=== PATIENT | female | born 1935 | race Caucasian/White ===

== ENCOUNTER 2018-05-07 11:24 | Inpatient (IN) | payer MEDICARE ==
[2018-05-07] VITALS (11 sets, daily range): BP systolic 128–192
[~2018-05-07] VITALS: Ht 154.9 cm; Wt 76.7 kg
[2018-05-07] MEDS ORDERED: IPRATROPIUM/ALBUTEROL SULFATE 3 ML AMPUL.NEB (DUONEB) INH ONE (11:45)
[2018-05-07 12:20] LABS: BASOPHILS # (AUTO) 0.1 K/uL (0.0-0.2); BASOPHILS % (AUTO) 0.7 % (0.0-2.0); EOSINOPHILS % (AUTO) 0.1 % (0.0-4.0); HEMATOCRIT 41.6 % (36-48); HEMOGLOBIN 13.4 g/dL (12.0-16.0); LYMPHOCYTES # (AUTO) 0.7 K/uL (1.0-5.5); LYMPHOCYTES % (AUTO) 3.7 % (20.5-51.5); MEAN CORPUSCULAR HEMOGLOBIN 29 pg (27-31); MEAN CORPUSCULAR HGB CONC 32 % (32-36); MEAN CORPUSCULAR VOLUME 90 fL (79.0-98.0); MONOCYTES # (AUTO) 0.3 K/uL (0.0-1.0); MONOCYTES % (AUTO) 1.7 % (1.7-9.3); NEUTROPHILS # (AUTO) 18.3 K/uL (1.8-7.7); NEUTROPHILS % (AUTO) 93.8 % (40.0-70.0); PLATELET COUNT (AUTO) 265 K/uL (130-430); RED BLOOD CELL COUNT(AUTO) 4.61 MIL/uL (4.2-6.2); WHITE BLOOD COUNT (AUTO) 19.4 K/uL (4.8-10.8)
[2018-05-07 12:31] LABS: PROTHROMBIN TIME 9.9 SECS (9.5-12.5)
[2018-05-07 12:34] LABS: ANION GAP 17 (5-15); CALCIUM 8.9 mg/dL (8.4-11.0); CHLORIDE 95 mmol/L (98-107); CREATININE 6.06 mg/dL (0.55-1.30); GLUCOSE 136 mg/dL (70-99); POTASSIUM 4.5 mmol/L (3.5-5.1); SODIUM SERUM 133 mmol/L (136-145); UREA NITROGEN, BLOOD 71 mg/dL (8-21)
[2018-05-07 12:52] LABS: ALANINE AMINOTRANSFERASE 64 U/L (12-78); ALBUMIN 3.1 g/dL (3.4-4.8); ASPARTATE AMINOTRANSFERASE 53 U/L (10-37); TOTAL BILIRUBIN 0.4 mg/dL (0.0-1.0)
[2018-05-07] MEDS ORDERED: cefTRIAXone 1 GM IVPB PREMIX 50 ML IV ONE (13:15)
[2018-05-07] MEDS ORDERED: LEVO100T9 PO (13:35)
[2018-05-07] MEDS ORDERED: NITSL SL (13:35)
[2018-05-07] MEDS ORDERED: ACET-73 PO (13:35)
[2018-05-07] MEDS ORDERED: ALBMDI INH (13:35)
[2018-05-07] MEDS ORDERED: DICL100G19 TP (13:35)
[2018-05-07] MEDS ORDERED: LIP40 PO (13:35)
[2018-05-07] MEDS ORDERED: METO100T14 PO (13:35)
[2018-05-07] MEDS ORDERED: METO-442 PO (13:35)
[2018-05-07] MEDS ORDERED: [UNRECOGNIZED DRUG - CODE] PO (13:35)
[2018-05-07] MEDS ORDERED: AMLO10TA88 PO (13:35)
[2018-05-07] MEDS ORDERED: SPIRIVA INH (13:35)
[2018-05-07] MEDS ORDERED: SEVE800T8 PO (13:35)
[2018-05-07] MEDS ORDERED: FURO-149 PO (13:35)
[2018-05-07] MEDS ORDERED: LIDOINT TP (13:35)
[2018-05-07] MEDS ORDERED: CALC1CAP19 PO (13:35)
[2018-05-07] MEDS ORDERED: PANT20TA2 PO (13:35)
[2018-05-07] MEDS ORDERED: MAGNESIUM SULFATE 50 ML IV ONE (18:00)
[2018-05-07] MEDS ORDERED: LORazepam 2 MG/ML VIAL IVP PRN ×2 (18:00→20:15)
[2018-05-07] MEDS ORDERED: methylPREDNISolone SOD SUCC/PF 62.5 MG/ML VIAL IVP ONE (18:30)
[2018-05-07] MEDS: IPRATROPIUM/ALBUTEROL SULFATE 3 ML AMPUL.NEB (DUONEB) INH SCH ×2 (19:33→23:15)
[2018-05-07] MEDS ORDERED: amLODIPine BESYLATE 10 MG TABLET PO ONE (19:45)
[2018-05-07] MEDS ORDERED: ACETAMINOPHEN 500 MG TABLET PO PRN (20:15)
[2018-05-07] MEDS ORDERED: NITROGLYCERIN 0.4 MG TAB.SUBL SL SCH (20:15)
[2018-05-07] MEDS ORDERED: ACETAMINOPHEN 325 MG TABLET PO PRN (20:15)
[2018-05-07] MEDS ORDERED: ONDANSETRON HCL 4 MG/2 ML VIAL IVP PRN (20:15)
[2018-05-07] MEDS ORDERED: ALBUTEROL MDI INHALATION 8 GM INH INH PRN (20:15)
[2018-05-07] MEDS ORDERED: HEPARIN SODIUM,PORCINE 5000 UNITS/ML VIAL SUBCUT SCH (21:00)
[2018-05-07] MEDS ORDERED: METOPROLOL TARTRATE 50 MG TABLET PO ONE (22:00)
[2018-05-07] MEDS ORDERED: NORMAL SALINE 5 ML DISP.SYRIN IVF SCH (22:00)
[2018-05-07] MEDS: NORMAL SALINE 5 ML DISP.SYRIN IVF SCH (22:39)
[2018-05-07] MEDS ORDERED: IPRATROPIUM BROM 0.5 MG/2.5 ML VIAL.NEB (ATROVENT) INH SCH (23:00)
[2018-05-07] MEDS ORDERED: *HEPARIN PER PHARMACY XX SCH (23:00)
[2018-05-07] MEDS ORDERED: HEPARIN 25,000 UNITS in 250 ML PREMIX IV PRN (23:45)
[2018-05-07] MEDS ORDERED: HEPARIN SODIUM,PORCINE 3000 UNITS/0.6 ML BOLUS IVP PRN ×2 (23:45)
[2018-05-07] MEDS ORDERED: HEPARIN SODIUM,PORCINE 2000 UNITS/0.4 ML BOLUS IVP PRN ×2 (23:45)
[2018-05-08] VITALS (21 sets, daily range): BP systolic 89–154
[2018-05-08] MEDS ORDERED: HEPARIN 25,000 UNITS in 250 ML PREMIX IV PRN
[2018-05-08] MEDS ORDERED: HEPARIN SODIUM,PORCINE 5000 UNITS/ML VIAL IV ONE (00:30)
[2018-05-08] MEDS: IPRATROPIUM/ALBUTEROL SULFATE 3 ML AMPUL.NEB (DUONEB) INH SCH ×5 (04:06→20:00)
[2018-05-08 05:53] LABS: BASOPHILS % (AUTO) 0.1 % (0.0-2.0); EOSINOPHILS % (AUTO) 0.1 % (0.0-4.0); HEMATOCRIT 37.5 % (36-48); HEMOGLOBIN 12.1 g/dL (12.0-16.0); LYMPHOCYTES # (AUTO) 0.7 K/uL (1.0-5.5); LYMPHOCYTES % (AUTO) 7.8 % (20.5-51.5); MEAN CORPUSCULAR HEMOGLOBIN 29 pg (27-31); MEAN CORPUSCULAR HGB CONC 32 % (32-36); MEAN CORPUSCULAR VOLUME 91 fL (79.0-98.0); MONOCYTES # (AUTO) 0.1 K/uL (0.0-1.0); MONOCYTES % (AUTO) 1.4 % (1.7-9.3); NEUTROPHILS # (AUTO) 8.2 K/uL (1.8-7.7); NEUTROPHILS % (AUTO) 90.6 % (40.0-70.0); PLATELET COUNT (AUTO) 227 K/uL (130-430); RED BLOOD CELL COUNT(AUTO) 4.11 MIL/uL (4.2-6.2); WHITE BLOOD COUNT (AUTO) 9.1 K/uL (4.8-10.8)
[2018-05-08] MEDS: NORMAL SALINE 5 ML DISP.SYRIN IVF SCH ×2 (06:04→16:38)
[2018-05-08] MEDS: methylPREDNISolone SOD SUCC/PF 62.5 MG/ML VIAL IVP SCH ×2 (06:04→16:38)
[2018-05-08 06:05] LABS: ANION GAP 16 (5-15); CALCIUM 8.9 mg/dL (8.4-11.0); CHLORIDE 99 mmol/L (98-107); CREATININE 5.18 mg/dL (0.55-1.30); GLUCOSE 121 mg/dL (70-99); POTASSIUM 4.1 mmol/L (3.5-5.1); SODIUM SERUM 137 mmol/L (136-145); UREA NITROGEN, BLOOD 50 mg/dL (8-21)
[2018-05-08 06:17] LABS: ALANINE AMINOTRANSFERASE 43 U/L (12-78); ALBUMIN 2.6 g/dL (3.4-4.8); ASPARTATE AMINOTRANSFERASE 42 U/L (10-37); PHOSPHORUS 5.2 mg/dL (2.7-4.5); TOTAL BILIRUBIN 0.4 mg/dL (0.0-1.0)
[2018-05-08] MEDS ORDERED: LEVOTHYROXINE SODIUM 0.1 MG TABLET PO SCH (07:30)
[2018-05-08] MEDS: METOPROLOL TARTRATE 50 MG TABLET PO SCH ×2 (08:37→20:59)
[2018-05-08] MEDS: SEVELAMER HCL 800 MG TABLET PO SCH ×3 (08:39→18:10)
[2018-05-08] MEDS: LIDOCAINE TOPICAL OINT 5%, 35 GM TP SCH ×2 (09:00→21:00)
[2018-05-08] MEDS ORDERED: VITAMIN B COMPLEX WITH C TAB/CAP PO SCH (09:00)
[2018-05-08] MEDS ORDERED: CALCIUM CARBONATE/VITAMIN D3 1 TAB TABLET PO SCH (09:00)
[2018-05-08] MEDS ORDERED: amLODIPine BESYLATE 10 MG TABLET PO SCH ×2 (09:00)
[2018-05-08] MEDS ORDERED: METOPROLOL TARTRATE 50 MG TABLET PO SCH ×2 (09:00)
[2018-05-08] MEDS ORDERED: cefTRIAXone 1 GM IVPB PREMIX 50 ML IV SCH (09:00)
[2018-05-08] MEDS ORDERED: FUROSEMIDE 40 MG TABLET PO SCH (09:00)
[2018-05-08] MEDS ORDERED: ASPIRIN 325 MG TABLET PO ONE (09:45)
[2018-05-08] MEDS ORDERED: AZITHROMYCIN 500 MG in NS 250 ML IV SCH (10:30)
[2018-05-08] MEDS ORDERED: ALBUTEROL SULFATE 0.083% 2.5 MG/3 ML VIAL.NEB INH PRN (12:46)
[2018-05-08] MEDS ORDERED: IPRATROPIUM BROM 0.5 MG/2.5 ML VIAL.NEB (ATROVENT) INH SCH (13:00)
[2018-05-08] MEDS ORDERED: ATORVASTATIN 20 MG TABLET PO SCH (18:00)
[2018-05-09] MEDS ORDERED: PANTOPRAZOLE GRANULES PACKET 40 MG PO SCH (06:00)
[2018-05-09] MEDS ORDERED: ASPIRIN 325 MG TABLET PO SCH (09:00)
== END 2018-05-08 21:30 | disposition short-term general hospital (02) | DRG 871 ==
LOC: SED 11:24 → STU 15:10 → SIC 17:24
PROVIDERS: ADMIT Preventive Medicine Preventive Medicine/Occupational Environmental Medicine; ATTEND Preventive Medicine Preventive Medicine/Occupational Environmental Medicine
PROC: 5A1D70Z Performance of Urinary Filtration, Intermittent, Less than 6 Hours Per Day (ICD-10-PCS; principal; 2018-05-07)
PROC: 5A09357 Assistance with Respiratory Ventilation, Less than 24 Consecutive Hours, Continuous Positive Airway Pressure (ICD-10-PCS; 2018-05-07)
DX: A41.9 Sepsis, unspecified organism (principal); N18.6 End stage renal disease; I21.4 Non-ST elevation (NSTEMI) myocardial infarction; J18.9 Pneumonia, unspecified organism; J96.01 Acute respiratory failure with hypoxia; J44.1 Chronic obstructive pulmonary disease with (acute) exacerbation; I13.2 Hypertensive heart and chronic kidney disease with heart failure and with stage 5 chronic kidney disease, or end stage renal disease; I50.30 Unspecified diastolic (congestive) heart failure; E87.1 Hypo-osmolality and hyponatremia; J44.0 Chronic obstructive pulmonary disease with (acute) lower respiratory infection; E03.9 Hypothyroidism, unspecified; E83.52 Hypercalcemia; E78.5 Hyperlipidemia, unspecified; R74.0 Nonspecific elevation of levels of transaminase and lactic acid dehydrogenase [LDH]; E83.42 Hypomagnesemia; E83.39 Other disorders of phosphorus metabolism; R73.9 Hyperglycemia, unspecified; F17.210 Nicotine dependence, cigarettes, uncomplicated; I25.10 Atherosclerotic heart disease of native coronary artery without angina pectoris; G89.29 Other chronic pain; M54.9 Dorsalgia, unspecified; I25.2 Old myocardial infarction; Z82.49 Family history of ischemic heart disease and other diseases of the circulatory system; Z99.2 Dependence on renal dialysis; Z88.2 Allergy status to sulfonamides; Z88.5 Allergy status to narcotic agent; Z91.048 Other nonmedicinal substance allergy status; Z79.899 Other long term (current) drug therapy
CPT/HCPCS: 36415; 36600; 71045; 80053; 82803-TC; 83605; 83735-TC; 83880; 84100-TC; 84484; 85025; 85379; 85610-TC; 85730-TC; 86710; 86738; 87040-TC; 87081; 90935; 93005; 93306; 94640; 94660; 96365; 99285; A6209; J0456; J0696; J1644; J2060; J2930; J3475; J7030; J7050; J7620

== ENCOUNTER 2018-06-24 09:32 | Emergency (ER) | payer MEDICARE ==
[~2018-06-24] VITALS: Ht 154.9 cm; Wt 90.7 kg
[~2018-06-24 09:32] MED LIST: ACET-73 PO; ALBMDI INH; AMLO10TA88 PO; CALC1CAP19 PO; DICL100G19 TP; FURO-149 PO; LEVO100T9 PO; LIDOINT TP; LIP40 PO; METO-442 PO; METO100T14 PO; NITSL SL; PANT20TA2 PO; SEVE800T8 PO; SPIRIVA INH; [UNRECOGNIZED DRUG - CODE] PO
[2018-06-24 09:33] VITALS: BP_SYST 161
--- NOTE | 2018-06-24 09:33 | NUR ---
Arrived via ALS ambulance with SOB. Patient was found to be tripoding with acessory muscle use on scene by EMS with an initial RA saturation of 87%. Patient improved during transport with albuterol treatment. On arrival resp 26, sitting in high fowlers, with O2 sat 99% on breathing Tx. Placed in room 1. Placed on trainmaster, blood pressure machine and pulse oximeter. To gown for exam. Side rails up. Report given to Jayda PANDA.
--- NOTE | 2018-06-24 09:33 | NUR ---
ER Dr. Walker at bedside examining patient.
--- NOTE | 2018-06-24 09:35 | NUR ---
Patient arrived via ALS ambulance. Patient c/c of shortness of breath, increased work of breathing. Per patient, she was discharged from [facility] yesterday. Since she has had increased work of breathing. Patient took Albuterol with no relief. Per EMS, patient was in tripod position, and abdominal breathing. Patient unable to move much air. Patient was given continuous albuterol en route. Patient has history of CHF, and hemodialysis. Last hemodialysis was on Sunday. Patient vitals are stable at this time. Will contiue to follow up and monitor.
--- NOTE | 2018-06-24 09:43 | NUR ---
Patient placed on BiPap, settings: IPAP 12; EPAP 5; Back up rate 12; 50% FiO2. Patient calm and cooperative. Will continue to follow up.
--- NOTE | 2018-06-24 09:43 | NUR ---
RT NOTES 0983 PT CAME IN BROUGHT BY EMS, COMPALINIGN OF SOB. PT ON BREATHING TX V/N WHEN CAME IN. GOT VERBAL ORDER FROM DR CELIS TO PUT PT ON BIPAP WITH SETTINGS 12/5 BUR 12, 50% ABG IN 1HOUR. PT SAT NOW 100% PT COMPLIANT. WILL MONITOR PT. AMARILYS UNGER/CHUCKIE AWARE.
--- NOTE | 2018-06-24 10:09 | NUR ---
Order entered by RN for EKG, stephany per Dr. Walker, verbal order received.
[2018-06-24 10:21] LABS: HEMATOCRIT 33.7 % (36-48); HEMOGLOBIN 10.7 g/dL (12.0-16.0); RED BLOOD CELL COUNT(AUTO) 3.29 MIL/uL (4.2-6.2); WHITE BLOOD COUNT (AUTO) 13.5 K/uL (4.8-10.8)
[2018-06-24 10:22] LABS: MEAN CORPUSCULAR HEMOGLOBIN 33 pg (27-31); MEAN CORPUSCULAR HGB CONC 32 % (32-36); MEAN CORPUSCULAR VOLUME 102 fL (79.0-98.0); RED CELL DISTRIBUTION WIDTH 18.8 % (9.0-15.0)
[2018-06-24 10:23] LABS: ANION GAP 14 (5-15); BASOPHILS % (AUTO) 0.1 % (0.0-2.0); CALCIUM 8.6 mg/dL (8.4-11.0); CHLORIDE 86 mmol/L (98-107); CREATININE 5.33 mg/dL (0.55-1.30); GLUCOSE 119 mg/dL (70-99); LYMPHOCYTES % (AUTO) 4.6 % (20.5-51.5); MONOCYTES % (AUTO) 6.4 % (1.7-9.3); NEUTROPHILS # (AUTO) 11.9 K/uL (1.8-7.7); PLATELET COUNT (AUTO) 200 K/uL (130-430); POTASSIUM 4.5 mmol/L (3.5-5.1); SODIUM SERUM 120 mmol/L (136-145); UREA NITROGEN, BLOOD 56 mg/dL (8-21)
[2018-06-24 10:24] LABS: LYMPHOCYTES # (AUTO) 0.6 K/uL (1.0-5.5); MONOCYTES # (AUTO) 0.9 K/uL (0.0-1.0)
[2018-06-24 10:25] LABS: INR 1.3 (0.8-1.2); PROTHROMBIN TIME 12.8 SECS (9.5-12.5)
[2018-06-24 10:33] LABS: ALBUMIN 2.9 g/dL (3.4-4.8); TOTAL BILIRUBIN 0.8 mg/dL (0.0-1.0)
[2018-06-24 10:44] LABS: ALANINE AMINOTRANSFERASE 1379 U/L (12-78); ASPARTATE AMINOTRANSFERASE 1103 U/L (10-37)
[2018-06-24] MEDS ORDERED: CLOP75TA32 PO (10:50)
[2018-06-24] MEDS ORDERED: ISOS30TA6 PO (10:50)
[2018-06-24] MEDS ORDERED: FLUT5.9S NS (10:50)
[2018-06-24] MEDS ORDERED: BECL8.7H (10:50)
[2018-06-24] MEDS ORDERED: BENZ-16 PO (10:50)
[2018-06-24] MEDS ORDERED: LOSA25TA3 PO (10:50)
[2018-06-24] MEDS ORDERED: ASA81 PO (10:50)
--- NOTE | 2018-06-24 10:54 | NUR ---
Medication reconciliation completed.
--- NOTE | 2018-06-24 11:02 | NUR ---
RT NOTES 1102 PER ABG RESULTS, DR CELIS VERBAL ORDER TITRATE FIO2 TO 30%. PT SAT 100% NO DISTRESS NOTED. AMARILYS NOGUERA AWARE. WILL CONTINUE TO MONITOR PT.
--- NOTE | 2018-06-24 11:02 | NUR ---
ABG results received, MD aware. FiO2 decreased to 30%, down from 50%.
--- NOTE | 2018-06-24 11:25 | NUR ---
[facility] of care received at this time, pt A&O4, pt on Bipap , VSS, skin pink and warm, family at bedside.
[2018-06-24 11:56] LABS: NEUTROPHILS % (AUTO) 88.9 % (40.0-70.0)
[2018-06-24] MEDS: ASPIRIN 325 MG TABLET PO ONE (12:03)
--- NOTE | 2018-06-24 12:23 | NUR ---
Patient resting comfortably. Needs are met at this time. Patient in position of comfort. Patient remains on BiPap as ordered. Will continue to follow up and monitor.
[2018-06-24] MEDS: methylPREDNISolone SOD SUCC/PF 62.5 MG/ML VIAL IVP ONE (12:27)
--- NOTE | 2018-06-24 13:49 | NUR ---
Daughter at bedside, and patient and family updated regarding transfer information to [facility] ED. Patient tolerating BiPap well. Oxygen saturation at 100%. Will continue to follow up and monitor.
[2018-06-24] MEDS: LORazepam 2 MG/ML VIAL (FOR ER USE) IVP ONE (14:19)
[2018-06-24 14:40] VITALS: BP_SYST 168
--- NOTE | 2018-06-24 14:41 | NUR ---
Patient to be transferred to [facility]. Is being transferred due to higher level of care. Receiving facility has accepting physician and available space. ER physician has signed transfer form. Patient or responsible democrat has agreed to transfer and signed form. Patient belongings inventoried and will be sent with patient. Copy of nursing notes, lab reports, EKG, Physicians Orders and X-rays to be sent with patient. Report called to Delia at receiving facility. Receiving physician is Dr. Whiteside. Transfer ambulance service has been called for transfer. Arrived for patient transport.
== END 2018-06-24 14:40 | disposition short-term general hospital (02) ==
LOC: SED 09:32
DX: I13.2 Hypertensive heart and chronic kidney disease with heart failure and with stage 5 chronic kidney disease, or end stage renal disease (principal); N18.6 End stage renal disease; I50.9 Heart failure, unspecified; J44.1 Chronic obstructive pulmonary disease with (acute) exacerbation; E87.1 Hypo-osmolality and hyponatremia; R79.89 Other specified abnormal findings of blood chemistry; R79.1 Abnormal coagulation profile; I25.2 Old myocardial infarction; Z86.79 Personal history of other diseases of the circulatory system; Z88.2 Allergy status to sulfonamides; Z88.5 Allergy status to narcotic agent; Z88.6 Allergy status to analgesic agent; Z91.041 Radiographic dye allergy status; Z79.82 Long term (current) use of aspirin; Z79.899 Other long term (current) drug therapy
CPT/HCPCS: 36415; 36600; 71045; 80053; 82550; 82803; 83605; 83874; 83880; 84484; 85025; 85379; 85610; 87040; 93005; 94660; 96365; 96375; 99285; J1956; J2060; J2930